=== PATIENT | female | born 1985 ===

== ENCOUNTER 2017-03-17 12:39 | Emergency (ER) | payer OTHER ==
[~2017-03-17] VITALS: Ht 175.3 cm; Wt 75.9 kg
[~2017-03-17 12:39] MED LIST: SULF1TAB35 PO
[2017-03-17 13:16] VITALS: BP 147/86; PULSE 72; RESP 16; O2SAT 98
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
[2017-03-17 13:57] LABS: APPEARANCE,URINE HAZY (CLEAR,HAZY); COLOR,URINE YELLOW (YELLOW)
[2017-03-17 13:58] LABS: OCCULT BLOOD,URINE MODERATE (NEGATIVE); UROBILINOGEN,URINE NORMAL (NORMAL)
[2017-03-17] MEDS ORDERED: 0.9% Sodium Chloride 1,000 ML IV ONE (14:15)
[2017-03-17 15:01] LABS: BASOPHILS % (AUTO) 0.5 % (0-3); EOSINOPHILS % (AUTO) 4.7 % (0-5); MONOCYTES % (AUTO) 7.2 % (4-12); Mean Corpuscular Hemoglobin 29.6 pg (27.0-35.0); Mean Corpuscular Volume 90.5 fL (81-100); NEUTROPHILS % (AUTO) 60.9 % (40-74); Platelet Count 227 bil/L (150-400)
[2017-03-17] MEDS ORDERED: Mupirocin 2% 22 Gm Ointment TOPICAL ONE (15:10)
[2017-03-17 15:16] LABS: ERYTHROCYTE SEDIMENTATION RATE 16 mm/hr (0-32)
[2017-03-17 17:15] VITALS: BP 124/71; PULSE 56; RESP 16; O2SAT 98
[2017-03-17] MEDS ORDERED: cefTRIAXone Inj 250 MG, Lidocaine PF 1% Inj 0.9 ML in Syringe 1 EACH IM ONE (17:40)
[2017-03-17] MEDS ORDERED: METR500T19 PO (19:00)
== END 2017-03-17 19:15 | disposition home or self-care (01) ==
LOC: SED 12:39
DX: F19.10 Other psychoactive substance abuse, uncomplicated (principal); E03.9 Hypothyroidism, unspecified; R41.82 Altered mental status, unspecified; Z72.51 High risk heterosexual behavior; F17.200 Nicotine dependence, unspecified, uncomplicated
CPT/HCPCS: 36415; 80053; 81000; 81025; 84439; 84443; 85025; 85651; 86140; 87086; 87088; 96372; 99284; G0480; J0696